=== PATIENT | male | born 1960 | race Caucasian/White ===

== ENCOUNTER 2020-01-24 13:37 | Outpatient (CLI) | payer MEDICARE, SELFPAY ==
--- NOTE | ~2020-01-24 | CT_ITS ---
EXAMINATION: CT lumbar spine wo con DATE: 01/24/2020 14:09 INDICATION: Low back pain. Postlaminectomy syndrome. Lumbar radiculopathy. TECHNIQUE: 1. Computed tomography (CT) of the lumbar spine was performed without intravenous contrast. Automated exposure control and iterative reconstruction technique were employed. The dose-length product was 9 79.82 mGy-cm. 2. 6 standing views of the lumbar spine were obtained including lateral projections in neutral, flexi on and extension, AP, left and right oblique and cone-down lateral view of the sacrum and lumbosacral junction. COMPARISON: None FINDINGS: L5 laminectomy and partial L4 laminectomy. L4-S1 anterior spinal fusion with interbody bone graft cag es at both levels and solid osseous fusion across the disc spaces. There is also been instrumented po sterior spinal fusion from L4-S1 with bilateral radiolucent rods and pedicle screw fixations at each level. There is solid osseous fusion across the facet joints at each level. 1-2 mm retrolisthesis L3 on L4 which is unchanged with extension but reduces to neutral with flexion. Minimal likely physiolog ic anterior wedging at T12 and L1. Minimal disc height loss at L3-L4. Mild disc height loss with vacu um phenomena at T11-T12. Bilateral nonobstructing nephrolithiasis with 2-3 mm stones at the upper saul e of the right kidney and lower pole of the left kidney. Mild scarring in the subcutaneous tissues po sterior to the lower lumbar spine. Vertebral soft tissues are otherwise unremarkable. The following d isc levels are specifically discussed: T11-T12: The disc does not extend beyond the posterior endplate margin. Endplate osteophytes at the p eriphery of a left foraminal/extraforaminal zone disc protrusion. There is minimal bilateral facet ya int osteoarthritis. There is mild left neural foraminal stenosis. There is no central canal stenosis. T12-L1: The disc does not extend beyond the endplate margin. There is mild bilateral facet joint oste oarthritis. There is no neural foraminal stenosis. There is no central canal stenosis. L1-L2: Disc is mildly bulging. There is mild bilateral facet joint osteoarthritis. There is mild left neural foraminal stenosis. There is mild central canal stenosis. L2-L3: Disc is bulging, eccentric to the left. There is mild hypertrophy of the ligamentum flavum. Th ere is mild bilateral facet joint osteoarthritis. There is moderate right and mild to moderate left n eural foraminal stenosis. There is mild central canal stenosis. L3-L4: Disc is bulging. There is hypertrophy of the ligamentum flavum. There is mild left and mild t o moderate right facet joint osteoarthritis. There is mild right and moderate left neural foraminal s tenosis. There is moderate to severe central canal stenosis. L4-L5: Disc space and facet joints are fused. There is posterior decompression. There is mild bilater al neural foraminal stenosis. There is no central canal stenosis. L5-S1: Disc space and facet joints are fused. There is posterior decompression. There is mild bilater al neural foraminal stenosis. There is no central canal stenosis. IMPRESSION: 1. Instrumented anterior and posterior spinal fusion at L4-S1. 2. Mild lumbar spondylosis most notable for moderate to severe central canal stenosis at L3-L4. 3. Bilateral nonobstructing nephrolithiasis. Reviewed, dictated and finalized at location A. IBLE PERSONAL PROPERTY APPRAISER IMPRESSION: 1. Instrumented anterior and posterior spinal fusion at L4-S1. 2. Mild lumbar spondylosis most notable for moderate to severe central canal st enosis at L3-L4. 3. Bilateral nonobstructing nephrolithiasis.
== END 2020-01-24 13:38 ==
PROVIDERS: Visit Provider Nurse Practitioner Family
DX: M96.1 Postlaminectomy syndrome, not elsewhere classified (principal); Z98.1 Arthrodesis status; M47.26 Other spondylosis with radiculopathy, lumbar region; N20.0 Calculus of kidney
CPT/HCPCS: 72114; 72131

== ENCOUNTER 2020-05-14 11:25 | Outpatient (CLI) | payer MEDICARE, SELFPAY ==
--- NOTE | ~2020-05-14 | CT_ITS ---
EXAMINATION: CT LE RT wo con DATE: 05/14/2020 12:15 INDICATION: Joint pain at the right foot and ankle. TECHNIQUE: High resolution computed tomography (CT) of the right foot and ankle was performed without intravenous contrast. Additional sagittal and coronal reconstructions were performed. Automated expo sure control and iterative reconstruction technique were employed. The dose-length product was 354.75 mGy-cm. COMPARISON: None FINDINGS: Bone alignment is normal. No fracture. Polyarticular osteoarthritis, mild at the subtalar, third tars al metatarsal and first metatarsophalangeal joints. Minimal osteoarthritis at several of the addition al joints in the right foot. Small chronic juxta articular erosions with corticated margins including at the medial head of the first metatarsal, at the base of the fourth metatarsal and at the lateral margin of the proximal cuboid. Tiny heterotopic ossicle at the medial side of the first metatarsophal angeal joint space along the medial collateral ligament which could be either degenerative or sequela of old trauma. Moderate-sized Achilles and plantar calcaneal spurs. No joint effusions or other abno rmal fluid collections. Diffuse mild fatty atrophy of the intrinsic musculature of the foot. IMPRESSION: 1. Minimal to mild polyarticular osteoarthritis in the right foot. 2. Several small chronic erosions with corticated margins including at the cuboid, base of the fourth metatarsal and at the medial head of the first metatarsal with location and appearance suggestive of gout. Reviewed, dictated and finalized at location A. IMPRESSION: 1. Minimal to mild polyarticular osteoarthritis in the right foot. 2. Several small chronic erosions with corticated margins including at the cubo id, base of the fourth metatarsal and at the medial head of the first metatarsa l with location and appearance suggestive of gout.
== END 2020-05-14 11:26 | disposition home or self-care (01) ==
PROVIDERS: PCP Internal Medicine; Visit Provider Nurse Practitioner Family
DX: M25.571 Pain in right ankle and joints of right foot (principal)
CPT/HCPCS: 73700

== ENCOUNTER 2020-10-21 07:41 | Outpatient (CLI) | payer MEDICARE, SELFPAY ==
--- NOTE | ~2020-10-21 | CT_ITS ---
EXAMINATION: CT thoracic spine wo con DATE: 10/21/2020 08:52 INDICATION: Thoracic back pain. TECHNIQUE: Computed tomography (CT) of the thoracic spine was performed without intravenous contrast. Automated exposure control and iterative reconstruction technique were employed. The dose-length pro duct was 1030.51 mGy-cm. COMPARISON: None FINDINGS: Cardiomegaly is noted. No pericardial effusion. There is a 5.4 cm fusiform aneurysm of asce nding aorta. There are calcifications of aortic valve. There is a 5 mm stone in right kidney. There i s 3 degrees dextrocurvature of thoracic spine. There is mild chronic anterior wedging of T10-L1 verte bral bodies. There is mild to moderately decreased disc height from T2-T3 through T12-L1, worst in th e mid thoracic spine. There are bridging endplate osteophytes from T7 to T11, consistent with diffuse idiopathic skeletal hyperostosis (DISH). There is multilevel facet joint osteoarthritis, severe bila terally at T3-T4 and T4-T5. On the right, there is mild neural foraminal stenosis at T3-T4 and T4-T5. On the left, there is mild neural foraminal stenosis at T3-T4. There is no central canal stenosis. T here is epidural lipomatosis in mid thoracic spine. IMPRESSION: 1. 5.4 cm fusiform aneurysm of ascending aorta. Surgical consultation is recommended. I called this r esult to Anjelica Serrano on 10/21/20 at 9:49 AM. 2. Moderate thoracic spondylosis. 3. DISH. Reviewed, dictated and finalized at location A. CIENCY CLERK IMPRESSION: 1. 5.4 cm fusiform aneurysm of ascending aorta. Surgical consultation is recomm ended. I called this result to Anjelica Serrano on 10/21/20 at 9:49 AM. 2. Moderate thoracic spondylosis. 3. DISH.
== END 2020-10-21 07:42 ==
PROVIDERS: PCP Internal Medicine; Visit Provider Nurse Practitioner Family
DX: M47.894 Other spondylosis, thoracic region (principal); I71.4 Abdominal aortic aneurysm, without rupture
CPT/HCPCS: 72128

== ENCOUNTER 2021-04-15 14:56 | Outpatient (CLI) | payer MEDICARE, SELFPAY ==
--- NOTE | ~2021-04-15 | XR_ITS ---
XR lumbar spine 2-3V DATE: 04/15/2021 15:18 INDICATION: Low back pain TECHNIQUE: Standing AP and lateral and coned lateral lumbosacral views COMPARISON: 01/16/2020 lumbar spine FINDINGS: Status post posterior and interbody spinal fusion at L4 4-S1. Diffuse osteopenia. No fracture or bone destruction or spondylolisthesis. There is mild degenerative disc disease at L1-2, L2-3 and L3-4. The sacroiliac joints are intact. IMPRESSION: Status post posterior and interbody spinal fusion at L4-S1 Osteopenia Mild degenerative disc disease at the upper and mid lumbar spine No significant change since numerous Reviewed, dictated and finalized at location B.
== END 2021-04-15 14:57 ==
PROVIDERS: PCP Internal Medicine; Visit Provider Nurse Practitioner Family
DX: M54.5 Low back pain (principal); Z98.1 Arthrodesis status; M85.88 Other specified disorders of bone density and structure, other site; M51.36 Other intervertebral disc degeneration, lumbar region
CPT/HCPCS: 72100

== ENCOUNTER 2024-01-16 09:15 | Outpatient (CLI) | payer MEDICARE, SELFPAY ==
--- NOTE | ~2024-01-16 | CT_ITS ---
EXAMINATION: CT lumbar spine wo con DATE: 01/16/2024 09:28 INDICATION: Radiculopathy, lumbar region. TECHNIQUE: Computed tomography (CT) of the lumbar spine was performed without intravenous contrast. A utomated exposure control and iterative reconstruction technique were employed. The dose-length produ ct was 828.39 mGy-cm. COMPARISON: Lumbar spine CT 01/24/2020 FINDINGS: Bone alignment is normal. There is mild chronic anterior wedging of L1 vertebral body. Ther e are changes of anterior and posterior fusion procedures from L4 to S1 with pedicle screws and inter body devices. There is mildly decreased disc height at L2-L3 and L3-L4. The osseous central spinal ca nal is developmentally small. The following disc levels are specifically discussed: L1-L2: The disc is bulging. There is mild bilateral facet joint osteoarthritis. There is mild bilater al neural foraminal stenosis. There is mild central canal stenosis. L2-L3: The disc is bulging. There is moderate bilateral facet joint osteoarthritis. There is mild rig ht and moderate left neural foraminal stenosis. There is mild central canal stenosis. L3-L4: The disc is bulging. There is moderate bilateral facet joint osteoarthritis. There is moderate bilateral neural foraminal stenosis. There is mild central canal stenosis. L4-L5: There is mild bilateral facet joint hypertrophy. There is mild bilateral neural foraminal sten osis. There is no central canal stenosis. L5-S1: There is mild bilateral facet joint hypertrophy. There is mild bilateral neural foraminal sten osis. There is no central canal stenosis. IMPRESSION: 1. Moderate lumbar spondylosis, stable from 01/24/2020. 2. Anterior and posterior fusion procedures from L4 to S1. Reviewed, dictated and finalized at location E. ING MACHINE ATTENDANT
== END 2024-01-16 09:16 ==
LOC: MICIMG 09:16
PROVIDERS: PCP Nurse Practitioner Family; Visit Provider Nurse Practitioner Family
DX: M47.26 Other spondylosis with radiculopathy, lumbar region (principal)
CPT/HCPCS: 72131

== ENCOUNTER 2024-12-13 13:36 | Outpatient (CLI) | payer MEDICARE, SELFPAY ==
--- NOTE | ~2024-12-13 | CT_ITS ---
CT lumbar spine wo con Ordering provider: Anjelica Serrano, [employer] SCRUBBER-[employer] History: 64 years Male with . Lumbar radicular pain . Comparison: None. Technique: CT lumbar spine without contrast. Automated exposure control and iterative reconstruction technique were employed. The dose-length product was 949.07 mGy-cm. FINDINGS: VERTEBRAE: Postoperative changes at the levels of L4, L5 and S1. Normal height and alignment. No subl uxation or visible acute fracture. DISC SPACES: Well maintained. Disc spacers seen at the levels of L4-L5 and L5-S1. Multilevel facet j oint disease. T12-L1: No stenosis. L1-L2: No stenosis. L2-L3: No stenosis. Diffuse disc bulge with bilateral narrowing of the foramina. Root compression is seen bilaterally. L3-L4: Mild spinal canal stenosis secondary to broad based disc bulge, facet arthropathy, and ligamen mikel flavum hypertrophy. Bilateral narrowing of the foramina with bilateral nerve root compression L4-L5: No stenosis. L5-S1: No stenosis. PARASPINOUS SOFT TISSUES: Mild atheromatous disease of the abdominal aorta. Bilateral sacroiliacs. IMPRESSION: Postoperative changes. No acute osseous abnormality. Multilevel disc bulges with variable degrees of intervertebral foraminal narrowing and nerve root com pression. Reviewed, dictated and finalized at location A. RCHARGER MECHANIC IMPRESSION: Postoperative changes. No acute osseous abnormality. Multilevel disc bulges with variable degrees of intervertebral foraminal narrow ing and nerve root compression.
== END 2024-12-13 13:37 | disposition home or self-care (01) ==
LOC: MICIMG 13:36
PROVIDERS: PCP Nurse Practitioner Family; Visit Provider Nurse Practitioner Family
DX: M51.26 Other intervertebral disc displacement, lumbar region (principal)
CPT/HCPCS: 72131